=== PATIENT | male | born 1975 | race Caucasian/White ===

== ENCOUNTER 2016-12-16 09:18 | Inpatient (IN) | payer BC ==
[2016-12-16 09:36] VITALS: BMI 34.4
--- NOTE | 2016-12-16 10:00 | PDOC ---
History of Present Illness - General Chief Complaint: Chest Pain Stated Complaint: CHEST PAIN Time Seen by Provider: 12/16/16 09:49 History Source: Patient - History of Present Illness Initial Comments: 12/16/16 10:23 Patient is a 41 y.o. male with a PMH of NIDDM, NC (s/p stent) who presents with a 5 day h/o of pressure like chest pain that starts L subclavicular and radiates down his L arm that is associated with exertion and relieved by rest that started while he was on a cruise to the [facility] in which he was walking more than normal. Patient denies any associated diaphoresis, lightheadedness or shortness of breath but does endorse loose stools (not diarrhea, normal amount of BM) on ROS but notes all of his family members on the cruise have had similar symptoms. NKDA Surgical stent Social: denies cigarettes, denies alcohol, denies recreational drugs PMD: Dr. Goldstein Medical Collections Specialist: Dr. Blanca Past History - Past Medical History Allergies/Adverse Reactions: Allergies Allergy/AdvReac Type Severity Reaction Status Date / Time No Known Allergies Allergy Verified 12/16/16 09:31 Home Medications: Ambulatory Orders Aspirin [ASA -] 81 mg PO DAILY 03/01/13 Fenofibrate 160 mg PO DAILY 03/01/13 Lisinopril [Prinivil] 5 mg PO DAILY 03/01/13 Sitagliptin Phos/Metformin HCl [Janumet 50-1,000 mg Tablet] 2 each PO DAILY Atorvastatin Ca [Lipitor] 80 mg PO DAILY 01/16/15 Empagliflozin [Jardiance] 10 mg PO DAILY 01/16/15 Glimepiride [Amaryl] 4 mg PO DAILY 01/16/15 Metoprolol Succinate [Toprol XL -] 50 mg PO DAILY 01/16/15 [place]-3 Acid Ethyl Esters [Lovaza -] 2,000 mg PO BID 01/16/15 Cardiac Disorders: Yes (NC, STENT PLACEMENT) COPD: No Diabetes: Yes HTN: Yes Hypercholesterolemia: Yes - Surgical History Cardiac Surgery: Yes (STENT) - Immunization History Immunization Up to Date: Yes - Suicide/Smoking/Psychosocial Hx Smoking History: Never smoked Have you smoked in the past 12 months: No Information on smoking cessation initiated: No Hx Alcohol Use: No Drug/Substance Use Hx: No Substance Use Type: None Review of Systems - Review of Systems Constitutional: No: Diaphoresis Respiratory: No: Shortness of Breath, SOB with Exertion Cardiac (ROS): Yes: Chest Pain, Lightheadedness. No: Palpitations ABD/GI: Yes: Diarrhea. No: Constipated, Nausea, Vomiting : No: Burning, Dysuria All Other Systems: Reviewed and Negative *Physical Exam - Vital Signs Last Vital Signs Temp Pulse Resp BP Pulse Ox 98.7 F 96 H 16 150/84 97 12/16/16 09:31 12/16/16 09:31 12/16/16 09:31 12/16/16 09:31 12/16/16 09:31 - Physical Exam General Appearance: Yes: Nourished, Obese Neck: positive: Trachea midline, Supple Respiratory/Chest: positive: Lungs Clear Cardiovascular: positive: Regular Rate, S1, S2. negative: Diastolic Murmur, Systolic Murmur Gastrointestinal/Abdominal: positive: Normal Bowel Sounds, Soft Musculoskeletal: negative: CVA Tenderness, CVA Tenderness (R) Extremity: positive: Normal Capillary Refill, Normal Inspection Integumentary: positive: Normal Color, Dry, Warm Neurologic: positive: band saw filer II-XII NML intact, Fully Oriented, Alert ED Treatment Course - LABORATORY CBC & Chemistry Diagram: 12/16/16 10:35 12/16/16 10:32 Medical Decision Making - Medical Decision Making 12/16/16 11:25 Patient is a 41 y.o. male who presents PLAN: 1. CBC, CMP 2. CXR 3. Cardiac profile 12/16/16 11:25 EKG shows NSR with HR 93 bpm, no deviations, normal intervals with poor R wave progression V4-V6 and Q waves in Leads II and aVF suggesting prior inferior infarct consistent with patient history. Troponin (-) x1, BS 254, however patient notes he did not take his medications this morning and his BS is usually 220's, will hydrate and recheck BS; CXR shows not acute pathology. 12/16/16 12:[address] Bailey (admits for [place]) and consult to patient's gericare aide teacher, Dr. Blanca. Dr. Bailey accepted patient to obs telemetry. Will continue to monitor patient while in ED. *DC/Admit/Observation/Transfer Diagnosis at time of Disposition: Chest pain in adult
[2016-12-16 10:41] LABS: BASOPHIL 0.4 % (0-2.0); EOSINOPHIL 0.7 % (0-4.5); MCH 30.1 pg (25.7-33.7); MCHC 33.2 g/dl (32.0-35.9); MEAN CELL VOLUME 90.6 fl (80-96); MEAN PLT VOLUME 10.1 fl (7.5-11.1); NEUTROPHILS 56.3 % (42.8-82.8); PLATELET COUNT 251 K/MM3 (134-434); RDW 13.8 % (11.9-15.9); WHITE BLOOD COUNT 7.7 K/mm3 (4.0-10.0)
[2016-12-16 11:07] LABS: ALBUMIN 4.2 g/dl (3.4-5.0); ANION GAP 12 (8-16); BILIRUBIN,TOTAL 0.3 mg/dL (0.2-1.0); CALCIUM 8.9 mg/dL (8.5-10.1); CO2 22 mmol/L (21-32); CPK 72 IU/L (39-308); CREATININE 0.9 mg/dL (0.7-1.3); GLUCOSE,RANDOM 254 mg/dL (74-106); SGPT/ALT 77 U/L (12-78); TOT PROT 8.5 g/dl (6.4-8.2)
[2016-12-16 11:09] LABS: ALK PHOS 62 U/L (45-117); TROPONIN I < 0.02 ng/ml (0.00-0.05)
[2016-12-16 11:13] LABS: SGOT/AST 42 U/L (15-37)
[2016-12-16] MEDS ORDERED: GLIMEPIRIDE 4 MG TABLET (FP) PO ONE (11:22)
[2016-12-16] MEDS ORDERED: sitaGLIPtin PHOSPHATE 50 MG TABLET PO ONE (11:23)
[2016-12-16] MEDS ORDERED: SODIUM CHLORIDE 0.9% 1000 ML INFUS.BAG IV ONE (11:29)
--- NOTE | 2016-12-16 11:46 | PDOC ---
Attending Attestation - HPI HPI: 12/16/16 12:00 Pt is a 41 yo M with a PMHx of LA, CAD (s/p stents) who presents to the ED with L sided chest pain for the past 5 days. Patient reports pain is exacerbated with exertion and resolves at rest. Patient notes he was recently on cruise to the [employer] and returned 2 days ago. Patient experienced these symptoms on the cruise however has persisted until today. Patient also notes loose stools ( nonbloody, nonmucoid) with no abdominal pain, nausea. - Physicial Exam PE: 12/16/16 12:06 GENERAL: Awake, alert, and fully oriented, in no acute distress HEAD: No signs of trauma EYES: PERRLA, EOMI, sclera anicteric, conjunctiva clear ENT: Auricles normal inspection, hearing grossly normal, nares patent, oropharynx clear without exudates. Moist mucosa NECK: Normal ROM, supple, no lymphadenopathy, JVD, or masses LUNGS: Breath sounds equal, clear to auscultation bilaterally. No wheezes, and no crackles HEART: Regular rate and rhythm, normal S1 and S2, no murmurs, rubs or gallops ABDOMEN: Soft, nontender, normoactive bowel sounds. No guarding, no rebound. No masses EXTREMITIES: Normal range of motion, no edema. No clubbing or cyanosis. No cords, erythema, or tenderness. No calf pain, tenderness. NEUROLOGICAL: Cranial nerves II through XII grossly intact. Normal speech, normal gait SKIN: Warm, Dry, normal turgor, no rashes or lesions noted. - Medical Decision Making 12/16/16 12:08 Documentation prepared by Jovita Little, acting as medical health researcher for Susy Ortiz DO, MD/. <Jovita Little - Last Filed: 12/16/16 12:17> - Resident Resident Name: Damari Khoury - ED Attending Attestation I have performed the following: I have examined & evaluated the patient, The case was reviewed & discussed with the resident, I agree w/resident's findings & plan, Exceptions are as noted - Medical Decision Making 12/16/16 11:46 I, Dr. Susy Ortiz DO, attest that this document has been prepared under my direction and personally reviewed by me in its entirety. I further attest, that it accurately reflects all work, treatment, procedures and medical decision -making performed by me. 12/16/16 12:20 a/p: 41 yo male with CP on exertion x 5 days -concern given hx of LA in the past -will check labs, cardiac enzymes, discuss with Dr. Blanca (helmet binder) -will need obs -xray -reassess 12/16/16 12:[address] Villalpando who will see the patient in consult. Jean Claude Bailey - microblog sent to Dr. Bailey for obs placemement <Susy Ortiz - Last Filed: 12/16/16 12:22>
[2016-12-16] MEDS ORDERED: ASPIRIN 81 MG CHEWABLE TABLETS PO ONE (12:07)
[2016-12-16] MEDS ORDERED: ASPIRIN 81 MG CHEWABLE TABLETS ONE (12:27)
[2016-12-16] MEDS ORDERED: ACETAMINOPHEN 325 MG TABLET (FP) PO PRN (13:48)
[2016-12-16] MEDS ORDERED: morphine SULFATE 4 MG/ML VIAL IVPUSH PRN (13:48)
[2016-12-16] MEDS ORDERED: ONDANSETRON 4 MG/2 ML VIAL IVPUSH PRN (13:48)
[2016-12-16] MEDS ORDERED: NITROGLYCERIN SUBLINGUAL 1/150 0.4 MG TAB SL PRN (13:52)
--- NOTE | 2016-12-16 13:52 | HP ---
Admitting History and Physical - Primary Care Physician PCP: Kristina Silverio - Admission Chief Complaint: I'm having chest pain History of Present Illness: Mr Gill is a pleasant 41 year old male who comes in with chest pain/L shoulder pain for 5 days. He says he was on a cruise and developed chest pain. He says it was pressure like in nature. At first it was minimal but it progressed. He says that he mainly feels it on exertion, it is not present at rest. He describes the pain as pressure like in nature radiating to his left shoulder, this is accompanied by a tingling in his left arm. He has shortness of breath associated with it. He had fluttering once with this. He says this feels like the pain he had when he had his heart attack. He denies fevers, chills, lightheadedness, dizziness, passing out, nausea, vomiting, abdominal pain, diarrhea, constipation, difficulty or pain on urination, or leg swelling. Currently he is chest pain free when he is not walking or exerting himself. History Source: Patient Limitations to Obtaining History: No Limitations - Past Medical History Cardiovascular: Yes: CAD, Hyperlipdemia, Other (stents) Endocrine: Yes: Diabetes Mellitus - Past Surgical History Past Surgical History: Yes: Tonsillectomy - Smoking History Smoking history: Never smoked Have you smoked in the past 12 months: No - Alcohol/Substance Use Hx Alcohol Use: No History of Substance Use: reports: None - Social History ADL: Independent History of Recent Travel: No Home Medications - Allergies Allergies/Adverse Reactions: Allergies Allergy/AdvReac Type Severity Reaction Status Date / Time No Known Allergies Allergy Verified 12/16/16 09:31 - Home Medications Home Medications: Ambulatory Orders Aspirin [ASA -] 81 mg PO DAILY 03/01/13 Fenofibrate 160 mg PO DAILY 03/01/13 Lisinopril [Prinivil] 5 mg PO DAILY 03/01/13 Sitagliptin Phos/Metformin HCl [Janumet 50-1,000 mg Tablet] 2 each PO DAILY Atorvastatin Ca [Lipitor] 80 mg PO DAILY 01/16/15 Empagliflozin [Jardiance] 10 mg PO DAILY 01/16/15 Glimepiride [Amaryl] 4 mg PO DAILY 01/16/15 Metoprolol Succinate [Toprol XL -] 50 mg PO DAILY 01/16/15 [place]-3 Acid Ethyl Esters [Lovaza -] 2,000 mg PO BID 01/16/15 Family Disease History - Family Disease History Family Disease History: Diabetes: Father, Other: Sister (hypothyroid) Review of Systems Findings/Remarks: Full review of systems obtained, as per HPI and otherwise negative Physical Examination Vital Signs: Vital Signs Temperature 37.1 C 12/16/16 09:31 Pulse Rate 86 12/16/16 12:34 Respiratory Rate 22 12/16/16 12:34 Blood Pressure 123/84 12/16/16 12:34 O2 Sat by Pulse Oximetry (%) 97 12/16/16 12:34 Constitutional: Yes: No Distress, Calm, Obese Eyes: Yes: Conjunctiva Clear, EOM Intact, PERRL HENT: Yes: Atraumatic, Normocephalic Cardiovascular: Yes: Regular Rate and Rhythm. No: Gallop, Murmur, Rub Respiratory: Yes: Regular, CTA Bilaterally. No: Rales, Rhonchi, Wheezes Gastrointestinal: Yes: Normal Bowel Sounds, Soft. No: Distention, Tenderness Extremities: Yes: WNL Edema: No Labs: Laboratory Results - last 24 hr 12/16/16 12/16/16 10:32 10:35 WBC 7.7 RBC 5.02 Hgb 15.1 Hct 45.5 MCV 90.6 MCH 30.1 MCHC 33.2 RDW 13.8 Plt Count 251 MPV 10.1 Neutrophils % 56.3 Lymphocytes % 35.9 Monocytes % 6.7 Eosinophils % 0.7 Basophils % 0.4 Sodium 134 L Potassium 4.7 Chloride 100 Carbon Dioxide 22 Anion Gap 12 BUN 18 D Creatinine 0.9 Creat Clearance w eGFR > 60 Random Glucose 254 H Calcium 8.9 Total Bilirubin 0.3 AST 42 H ALT 77 D Alkaline Phosphatase 62 Creatine Kinase 72 Troponin I < 0.02 Total Protein 8.5 H Albumin 4.2 Imaging - Results Chest X-ray: Report Reviewed, Image Reviewed EKG: Image Reviewed Problem List - Problems (1) Unstable angina Assessment/Plan: -symptoms consistent with unstable angina -however says last year had same pain and was secondary to anxiety -states last stress test and cardiac cath was last year -admit to telemetry under observation -cardiac enzymes x3 -cardiology consult -continue home regimen, medical management for CAD -add prn nitro Code(s): I20.0 - UNSTABLE ANGINA (2) Diabetes Assessment/Plan: -diabetic diet -continue home regimen -FSBS and SSI Code(s): E11.9 - TYPE 2 DIABETES MELLITUS WITHOUT COMPLICATIONS (3) Hypercholesteremia Assessment/Plan: -continue statin Code(s): E78.0 - PURE HYPERCHOLESTEROLEMIA * DO NOT USE * (4) CAD (coronary artery disease) Assessment/Plan: -continue home regimen -cardiology consult Code(s): I25.10 - ATHSCL HEART DISEASE OF [place] CORONARY ARTERY W/O ANG PCTRS
--- NOTE | 2016-12-16 15:02 | CON.CARD ---
Cardiology Consult (text) - Consultation Consultation Note: CC: CP 41 yrs old with known CAD (nstemi s/p distal RCA DAYRON PCI 01/2011), HTN, hyper TG (last TG > 1400), obesity, DM, anxiety depression p/w chest pain Now with progressive exertional cp. Prior anginal symptoms cold/hot, burning sensation in upper chest when walking. Quality of this pain is different and feels more like chest discomfort that he gets when he is stressed, but that is typicallly not exertional. TG's in May were very elevated, 1485. PMH/Pshx: per phi social hx: no cigs fam hx: no FH of early CAD ros: per hpi Ambulatory Orders Aspirin [ASA -] 81 mg PO DAILY 03/01/13 Fenofibrate 160 mg PO DAILY 03/01/13 Lisinopril [Prinivil] 5 mg PO DAILY 03/01/13 Sitagliptin Phos/Metformin HCl [Janumet 50-1,000 mg Tablet] 2 each PO DAILY Atorvastatin Ca [Lipitor] 80 mg PO DAILY 01/16/15 Empagliflozin [Jardiance] 10 mg PO DAILY 01/16/15 Glimepiride [Amaryl] 4 mg PO DAILY 01/16/15 Metoprolol Succinate [Toprol XL -] 50 mg PO DAILY 01/16/15 [place]-3 Acid Ethyl Esters [Lovaza -] 2,000 mg PO BID 01/16/15 Current Medications Acetaminophen (Tylenol -) 650 mg PO Q4H PRN PRN Reason: FEVER OR PAIN Aspirin (Asa -) 81 mg PO DAILY [facility] Atorvastatin Calcium (Lipitor -) 80 mg PO DAILY [facility] Fenofibric Acid (Trilipix -) 135 mg PO DAILY [facility] Glimepiride (Amaryl -) 4 mg PO AM [facility] Insulin Aspart (Novolog Vial Sliding Scale -) 1 vial SQ ACHS [facility] PRN Reason: Protocol Lisinopril (Prinivil) 5 mg PO DAILY [facility] Metoprolol Succinate (Toprol Xl -) 50 mg PO DAILY [facility] Morphine Sulfate (Morphine Injection -) 1 mg IVPUSH Q4H PRN PRN Reason: PAIN Nitroglycerin (Nitrostat -) 0.4 mg SL Q5M PRN PRN Reason: FOR CHEST PAIN Non-Formulary Medication (Sitagliptin Phos/Metformin Hcl [Janumet 50-1,000 Mg Tablet]) 2 each PO DAILY [facility] [id number] Ethyl Esters (Lovaza -) 2 gm PO BID [facility] Ondansetron HCl (Zofran Injection) 4 mg IVPUSH Q6H PRN PRN Reason: NAUSEA Vital Signs - 24 hr 12/16/16 12/16/16 12/16/16 09:31 10:20 11:38 Temperature 98.7 F Pulse Rate 96 H Pulse Rate [ 92 H Apical] Respiratory 16 20 Rate Blood Pressure 150/84 Blood Pressure 128/89 [Left Arm] O2 Sat by Pulse 97 98 97 Oximetry (%) 12/16/16 12/16/16 12:34 14:46 Temperature 98.8 F Pulse Rate Pulse Rate [ 86 92 H Apical] Respiratory 22 20 Rate Blood Pressure Blood Pressure 123/84 125/70 [Left Arm] O2 Sat by Pulse 97 95 Oximetry (%) Intake & Output 12/14/16 12/15/16 12/16/16 12/17/16 08:59 07:59 07:59 07:59 Weight 220 lb NAD, calm JVD flat, neck supple ctab, nl effort rrr nl s1, s2 no m/r/g + bs soft nt nd ext without e/c/c + dp/pt aaox3 no carotid bruits no jaundice, diaphoresis CBC, BMP 12/16/16 10:35 12/16/16 10:32 Laboratory Tests 12/16/16 10:32 Total Bilirubin 0.3 AST 42 H ALT 77 D Alkaline Phosphatase 62 Troponin I < 0.02 Albumin 4.2 EKG: sr, inferior q waves, poor r wave progression. no acute ischemic changes. tele: SR cxr: wnl 41 yrs old with known CAD (nstemi s/p distal RCA DAYRON PCI 01/2011), HTN, hyper TG (last TG > 1400), obesity, DM, anxiety depression p/w chest pain CAD (nstemi s/p distal RCA DAYRON PCI 01/2011) - con't luis miguel, ekg as above. - known cad, with typical anginal exertional pain (although different from prior anginal pain). --> plan for stress test, echo - con't bb, statin, asa. HTN - bb as above hyperTG - lipase and triglyceride level. Last level was 1400 and at risk for pancreatitis. con't high dose statin, fibrate. anxiety/depression - per pmd
[2016-12-16] MEDS: INSULIN SLIDING SCALE (NOVOLOG) 1 VIAL SQ SCH ×2 (17:26→22:37)
[2016-12-16 19:08] LABS: CPK 57 IU/L (39-308); TROPONIN I < 0.02 ng/ml (0.00-0.05)
[2016-12-16] MEDS: OMEGA-3 ACID ETHYL ESTERS (FATTY-ACIDS) 1 GM CAPSULE (FP) PO SCH (22:40)
[2016-12-16 22:57] LABS: CHOLESTEROL 210 mg/dL (50-200)
[2016-12-17 06:31] LABS: BASOPHIL 0.3 % (0-2.0); EOSINOPHIL 1.4 % (0-4.5); MCH 30.5 pg (25.7-33.7); MEAN CELL VOLUME 89.5 fl (80-96); MEAN PLT VOLUME 9.9 fl (7.5-11.1); NEUTROPHILS 52.7 % (42.8-82.8); PLATELET COUNT 225 K/MM3 (134-434); RDW 13.4 % (11.9-15.9); WHITE BLOOD COUNT 7.5 K/mm3 (4.0-10.0)
[2016-12-17 06:59] LABS: ANION GAP 8 (8-16); CALCIUM 8.6 mg/dL (8.5-10.1); CO2 25 mmol/L (21-32); CREATININE 0.8 mg/dL (0.7-1.3); GLUCOSE,RANDOM 199 mg/dL (74-106); MAGNESIUM 2.1 mg/dL (1.8-2.4); PHOSPHOROUS 3.4 mg/dL (2.5-4.9)
[2016-12-17 07:04] LABS: CPK 52 IU/L (39-308); TROPONIN I < 0.02 ng/ml (0.00-0.05)
--- NOTE | 2016-12-17 07:31 | EKG ---
Test Reason : Blood Pressure : / mmHG Vent. Rate : 093 BPM Atrial Rate : 093 BPM P-R Int : 142 ms QRS Dur : 092 ms QT Int : 358 ms P-R-T Axes : 040 003 008 degrees QTc Int : 445 ms NORMAL SINUS RHYTHM INFERIOR INFARCT (CITED ON OR BEFORE 31-JAN-2011) CANNOT RULE OUT ANTERIOR INFARCT , AGE UNDETERMINED ABNORMAL ECG WHEN COMPARED WITH ECG OF 01-MAR-2013 12:07, NO SIGNIFICANT CHANGE WAS FOUND Confirmed by TJ SALAS MD ([id number]) on 12/17/2016 7:31:25 AM Referred By: Confirmed By:TJ SALAS MD
[2016-12-17] MEDS ORDERED: INSULIN (NOVOLOG) ASPART 100 UNITS/ML 10ML VIAL ONE (08:36)
[2016-12-17] MEDS: INSULIN SLIDING SCALE (NOVOLOG) 1 VIAL SQ SCH ×3 (08:53→22:27)
[2016-12-17] MEDS: GLIMEPIRIDE 4 MG TABLET (FP) PO SCH (09:00)
[2016-12-17] MEDS: sitaGLIPtin PHOSPHATE 100 MG TABLET (FP) PO SCH (09:01)
[2016-12-17] MEDS ORDERED: PATIENT'S OWN MEDICATION (NON-FORMULARY) (Sitagliptin Phos/Metformin Hcl [Janumet 50-1,000 PO SCH (10:00)
[2016-12-17] MEDS ORDERED: METOPROLOL SUCCINATE 50 MG TAB.SR.24H (FP) PO SCH (10:00)
[2016-12-17] MEDS: ATORVASTATIN CA 80 MG TABLET (FP) PO SCH (10:07)
[2016-12-17] MEDS: LISINOPRIL 5 MG TABLET (FP) PO SCH (10:07)
[2016-12-17] MEDS: ASPIRIN 81 MG CHEWABLE TABLETS PO SCH (10:07)
[2016-12-17] MEDS: FENOFIBRIC ACID 135 MG CAP PO SCH (10:08)
[2016-12-17] MEDS: OMEGA-3 ACID ETHYL ESTERS (FATTY-ACIDS) 1 GM CAPSULE (FP) PO SCH ×2 (10:47→22:54)
--- NOTE | 2016-12-17 13:24 | PN ---
Progress Note (short form) - Note Progress Note: CC: cp S: cp improved overnight. no sob, palps, dizziness. Current Medications Acetaminophen (Tylenol -) 650 mg PO Q4H PRN PRN Reason: FEVER OR PAIN Aspirin (Asa -) 81 mg PO DAILY [facility] Last Admin: 12/17/16 10:07 Dose: 81 mg Atorvastatin Calcium (Lipitor -) 80 mg PO DAILY [facility] Last Admin: 12/17/16 10:07 Dose: 80 mg Fenofibric Acid (Trilipix -) 135 mg PO DAILY [facility] Last Admin: 12/17/16 10:08 Dose: 135 mg Glimepiride (Amaryl -) 4 mg PO AM [facility] Last Admin: 12/17/16 09:00 Dose: 4 mg Insulin Aspart (Novolog Vial Sliding Scale -) 1 vial SQ ACHS [facility] PRN Reason: Protocol Last Admin: 12/17/16 08:53 Dose: Not Given Lisinopril (Prinivil) 5 mg PO DAILY [facility] Last Admin: 12/17/16 10:07 Dose: 5 mg Metformin HCl (Glucophage Xr -) 2,000 mg PO AM [facility] Last Admin: 12/17/16 09:01 Dose: 2,000 mg Metoprolol Succinate (Toprol Xl -) 50 mg PO DAILY [facility] Last Admin: 12/17/16 10:08 Dose: 50 mg Morphine Sulfate (Morphine Sulfate) 1 mg IVPUSH Q4H PRN PRN Reason: PAIN Nitroglycerin (Nitrostat -) 0.4 mg SL Q5M PRN PRN Reason: FOR CHEST PAIN [id number] Ethyl Esters (Lovaza -) 2 gm PO BID [facility] Last Admin: 12/17/16 10:47 Dose: Not Given Ondansetron HCl (Zofran Injection) 4 mg IVPUSH Q6H PRN PRN Reason: NAUSEA Sitagliptin Phosphate (Januvia -) 100 mg PO DAILY@0700 [facility] Last Admin: 12/17/16 09:01 Dose: 100 mg Vital Signs - 24 hr 12/16/16 12/16/16 12/16/16 14:46 17:30 20:34 Temperature 98.8 F 98.3 F Pulse Rate [ 92 H 89 Apical] Respiratory 20 20 Rate Blood Pressure 125/70 136/78 [Left Arm] O2 Sat by Pulse 95 96 96 Oximetry (%) 12/17/16 06:30 Temperature 97.5 F L Pulse Rate [ 80 Apical] Respiratory 18 Rate Blood Pressure 138/82 [Left Arm] O2 Sat by Pulse 98 Oximetry (%) Intake & Output 12/15/16 12/16/16 12/17/16 12/18/16 07:59 07:59 07:59 07:59 Weight 220 lb NAD, calm JVD flat, neck supple ctab, nl effort rrr nl s1, s2 no m/r/g + bs soft nt nd ext without e/c/c + dp/pt aaox3 no carotid bruits no jaundice, diaphoresis CBC, BMP 12/17/16 06:02 12/17/16 06:02 Laboratory Tests 12/16/16 12/16/16 12/17/16 10:32 17:40 06:02 Troponin I < 0.02 < 0.02 < 0.02 EKG: sr, inferior q waves, poor r wave progression. no acute ischemic changes. tele: SR cxr: wnl 41 yrs old with known CAD (nstemi s/p distal RCA DAYRON PCI 01/2011), HTN, hyper TG (last TG > 1400), obesity, DM, anxiety depression p/w chest pain CAD (nstemi s/p distal RCA DAYRON PCI 01/2011) - ce's neg x 3, ekg as above. - known cad, with typical anginal exertional pain (although different from prior anginal pain). --> stress test pending, echo report pending - will uptitrate metoprolol to bid dosing for improved hr control. HTN - cont current meds. bb adjustment as above. hyperTG - improved from priors. con't high dose statin, fibrate. anxiety/depression - per pmd
--- NOTE | 2016-12-17 16:51 | PN ---
Progress Note, Physician Chief Complaint: Mr Gill says he is doing well. Denies cp, sob, n/v - Current Medication List Current Medications: Active Medications Acetaminophen (Tylenol -) 650 mg PO Q4H PRN PRN Reason: FEVER OR PAIN Aspirin (Asa -) 81 mg PO DAILY [facility] Last Admin: 12/17/16 10:07 Dose: 81 mg Atorvastatin Calcium (Lipitor -) 80 mg PO DAILY [facility] Last Admin: 12/17/16 10:07 Dose: 80 mg Fenofibric Acid (Trilipix -) 135 mg PO DAILY [facility] Last Admin: 12/17/16 10:08 Dose: 135 mg Glimepiride (Amaryl -) 4 mg PO AM [facility] Last Admin: 12/17/16 09:00 Dose: 4 mg Insulin Aspart (Novolog Vial Sliding Scale -) 1 vial SQ ACHS [facility] PRN Reason: Protocol Last Admin: 12/17/16 08:53 Dose: Not Given Lisinopril (Prinivil) 5 mg PO DAILY [facility] Last Admin: 12/17/16 10:07 Dose: 5 mg Metformin HCl (Glucophage Xr -) 2,000 mg PO AM [facility] Last Admin: 12/17/16 09:01 Dose: 2,000 mg Metoprolol Succinate (Toprol Xl -) 50 mg PO DAILY [facility] Last Admin: 12/17/16 10:08 Dose: 50 mg Morphine Sulfate (Morphine Sulfate) 1 mg IVPUSH Q4H PRN PRN Reason: PAIN Nitroglycerin (Nitrostat -) 0.4 mg SL Q5M PRN PRN Reason: FOR CHEST PAIN [id number] Ethyl Esters (Lovaza -) 2 gm PO BID [facility] Last Admin: 12/17/16 10:47 Dose: Not Given Ondansetron HCl (Zofran Injection) 4 mg IVPUSH Q6H PRN PRN Reason: NAUSEA Sitagliptin Phosphate (Januvia -) 100 mg PO DAILY@0700 [facility] Last Admin: 12/17/16 09:01 Dose: 100 mg - Objective Vital Signs: Vital Signs Temperature 36.9 C 12/17/16 16:36 Pulse Rate 84 12/17/16 16:36 Respiratory Rate 18 12/17/16 16:36 Blood Pressure 117/78 12/17/16 16:36 O2 Sat by Pulse Oximetry (%) 98 12/17/16 16:36 Constitutional: Yes: No Distress, Calm, Obese Cardiovascular: Yes: Regular Rate and Rhythm. No: Gallop, Murmur, Rub Respiratory: Yes: Regular, CTA Bilaterally. No: Rales, Rhonchi, Wheezes Gastrointestinal: Yes: Normal Bowel Sounds, Soft. No: Distention, Tenderness Extremities: Yes: WNL Edema: No Labs: CBC, BMP 12/17/16 06:02 12/17/16 06:02 Problem List - Problems (1) Unstable angina Code(s): I20.0 - UNSTABLE ANGINA (2) Diabetes Code(s): E11.9 - TYPE 2 DIABETES MELLITUS WITHOUT COMPLICATIONS (3) Hypercholesteremia Code(s): E78.0 - PURE HYPERCHOLESTEROLEMIA * DO NOT USE * (4) CAD (coronary artery disease) Code(s): I25.10 - ATHSCL HEART DISEASE OF [place] CORONARY ARTERY W/O ANG PCTRS Assessment/Plan (1) Unstable angina Assessment/Plan: -case d/w cardiology -awaiting stress test results -continue current management Code(s): I20.0 - UNSTABLE ANGINA (2) Diabetes Assessment/Plan: -diabetic diet -continue home regimen -FSBS and SSI -may need outpatient adjustment with HgbA1c of 8.8 Code(s): E11.9 - TYPE 2 DIABETES MELLITUS WITHOUT COMPLICATIONS (3) Hypercholesteremia Assessment/Plan: -significantly elevated triglycerides, but improved from outpatient -continue current regimen -may need further outpatient adjustment Code(s): E78.0 - PURE HYPERCHOLESTEROLEMIA * DO NOT USE * (4) CAD (coronary artery disease) Assessment/Plan: -continue home regimen -cardiology following Code(s): I25.10 - ATHSCL HEART DISEASE OF [place] CORONARY ARTERY W/O ANG PCTRS
[2016-12-17] MEDS ORDERED: PT OWN MED DRAWER 7, Y5N ONE (22:18)
[2016-12-17] MEDS: METOPROLOL SUCCINATE 50 MG TAB.SR.24H (FP) PO SCH (22:54)
[2016-12-18] MEDS: OMEGA-3 ACID ETHYL ESTERS (FATTY-ACIDS) 1 GM CAPSULE (FP) PO SCH ×2 (10:30→21:34)
[2016-12-18] MEDS: FENOFIBRIC ACID 135 MG CAP PO SCH (10:31)
[2016-12-18] MEDS: ATORVASTATIN CA 80 MG TABLET (FP) PO SCH (10:31)
[2016-12-18] MEDS: ASPIRIN 81 MG CHEWABLE TABLETS PO SCH (10:31)
[2016-12-18] MEDS: LISINOPRIL 5 MG TABLET (FP) PO SCH (10:31)
[2016-12-18] MEDS: METOPROLOL SUCCINATE 50 MG TAB.SR.24H (FP) PO SCH ×2 (10:31→21:34)
--- NOTE | 2016-12-18 11:05 | PN ---
Progress Note (short form) - Note Progress Note: CC: cp S: cp improved overnight. no sob, palps, dizziness. Current Medications Generic Name Dose Route Start Last Admin Trade Name Freq PRN Reason Stop Dose Admin Acetaminophen 650 mg 12/16/16 13:48 Tylenol - PO Q4H PRN FEVER OR PAIN Aspirin 81 mg 12/17/16 10:00 12/18/16 10:31 Asa - PO 81 mg DAILY LIDIA Administration Atorvastatin Calcium 80 mg 12/17/16 10:00 12/18/16 10:31 Lipitor - PO 80 mg DAILY LIDIA Administration Fenofibric Acid 135 mg 12/17/16 10:00 12/18/16 10:31 Trilipix - PO 135 mg DAILY LIDIA Administration Glimepiride 4 mg 12/17/16 07:00 12/17/16 09:00 Amaryl - PO 4 mg AM ILDIA Administration Insulin Aspart 1 vial 12/16/16 16:30 12/17/16 22:27 Novolog Vial Sliding Scale - SQ Not Given ACHS [facility] Protocol Lisinopril 5 mg 12/17/16 10:00 12/18/16 10:31 Prinivil PO 5 mg DAILY LIDIA Administration Metformin HCl 2,000 mg 12/17/16 07:00 12/17/16 09:01 Glucophage Xr - PO 2,000 mg AM LIDIA Administration Metoprolol Succinate 50 mg 12/17/16 22:00 12/18/16 10:31 Toprol Xl - PO 50 mg BID LIDIA Administration Morphine Sulfate 1 mg 12/16/16 13:48 Morphine Sulfate IVPUSH Q4H PRN PAIN Nitroglycerin 0.4 mg 12/16/16 13:52 Nitrostat - SL Q5M PRN FOR CHEST PAIN [id number] Ethyl Esters 2 gm 12/16/16 22:00 12/18/16 10:30 Lovaza - PO 2 gm BID LIDIA Administration Ondansetron HCl 4 mg 12/16/16 13:48 Zofran Injection IVPUSH Q6H PRN NAUSEA Sitagliptin Phosphate 100 mg 12/17/16 07:00 12/17/16 09:01 Januvia - PO 100 mg DAILY@0700 LIDIA Administration Vital Signs Period Temp Pulse Resp BP Sys/Alvarez Pulse Ox Last 24 Hr 97.3 F-98.5 F 74-93 18-19 109-131/69-82 98-98 NAD, calm JVD flat, neck supple ctab, nl effort rrr nl s1, s2 no m/r/g + bs soft nt nd ext without e/c/c aaox3 no jaundice, diaphoresis CBC, BMP 12/17/16 06:02 12/17/16 06:02 EKG: sr, inferior q waves, poor r wave progression. no acute ischemic changes. tele: SR cxr: wnl mibi 12/2016: large inferolat severe ischemia, small apical ischemia a/p: 41 yrs old with known CAD (nstemi s/p distal RCA DAYRON PCI 01/2011), HTN, hyper TG (last TG > 1400), obesity, DM, anxiety depression p/w chest pain CAD (nstemi s/p distal RCA DAYRON PCI 01/2011) - ce's neg x 3, ekg as above. - known cad, with typical anginal exertional pain (although different from prior anginal pain). -->mibi shows severe ischemia so will plan for cath at [facility], likely tomorrow. echo report pending. - cont bb, statin, asa HTN - cont current meds. hyperTG - improved from priors. con't high dose statin, fibrate.
--- NOTE | 2016-12-18 11:38 | PN ---
Progress Note, Physician Chief Complaint: Mr Gill says he is doing well. Denies cp, sob, n/v - Current Medication List Current Medications: Active Medications Acetaminophen (Tylenol -) 650 mg PO Q4H PRN PRN Reason: FEVER OR PAIN Aspirin (Asa -) 81 mg PO DAILY [facility] Last Admin: 12/18/16 10:31 Dose: 81 mg Atorvastatin Calcium (Lipitor -) 80 mg PO DAILY [facility] Last Admin: 12/18/16 10:31 Dose: 80 mg Fenofibric Acid (Trilipix -) 135 mg PO DAILY [facility] Last Admin: 12/18/16 10:31 Dose: 135 mg Glimepiride (Amaryl -) 4 mg PO AM [facility] Last Admin: 12/17/16 09:00 Dose: 4 mg Insulin Aspart (Novolog Vial Sliding Scale -) 1 vial SQ ACHS [facility] PRN Reason: Protocol Last Admin: 12/17/16 22:27 Dose: Not Given Lisinopril (Prinivil) 5 mg PO DAILY [facility] Last Admin: 12/18/16 10:31 Dose: 5 mg Metformin HCl (Glucophage Xr -) 2,000 mg PO AM [facility] Last Admin: 12/17/16 09:01 Dose: 2,000 mg Metoprolol Succinate (Toprol Xl -) 50 mg PO BID [facility] Last Admin: 12/18/16 10:31 Dose: 50 mg Morphine Sulfate (Morphine Sulfate) 1 mg IVPUSH Q4H PRN PRN Reason: PAIN Nitroglycerin (Nitrostat -) 0.4 mg SL Q5M PRN PRN Reason: FOR CHEST PAIN [id number] Ethyl Esters (Lovaza -) 2 gm PO BID [facility] Last Admin: 12/18/16 10:30 Dose: 2 gm Ondansetron HCl (Zofran Injection) 4 mg IVPUSH Q6H PRN PRN Reason: NAUSEA Sitagliptin Phosphate (Januvia -) 100 mg PO DAILY@0700 [facility] Last Admin: 12/17/16 09:01 Dose: 100 mg - Objective Vital Signs: Vital Signs Temperature 36.9 C 12/18/16 10:33 Pulse Rate 83 12/18/16 10:33 Respiratory Rate 19 12/18/16 10:33 Blood Pressure 120/69 12/18/16 10:33 O2 Sat by Pulse Oximetry (%) 98 12/17/16 22:00 Constitutional: Yes: Well Nourished, No Distress, Calm Cardiovascular: Yes: Regular Rate and Rhythm. No: Gallop, Murmur, Rub Respiratory: Yes: Regular, CTA Bilaterally. No: Rales, Rhonchi, Wheezes Gastrointestinal: Yes: Normal Bowel Sounds, Soft. No: Distention, Tenderness Extremities: Yes: WNL Edema: No Labs: CBC, BMP 12/17/16 06:02 12/17/16 06:02 Problem List - Problems (1) Diabetes Code(s): E11.9 - TYPE 2 DIABETES MELLITUS WITHOUT COMPLICATIONS (2) Hypercholesteremia Code(s): E78.0 - PURE HYPERCHOLESTEROLEMIA * DO NOT USE * (3) Unstable angina Code(s): I20.0 - UNSTABLE ANGINA (4) CAD (coronary artery disease) Code(s): I25.10 - ATHSCL HEART DISEASE OF [place] CORONARY ARTERY W/O ANG PCTRS Assessment/Plan (1) ACS Assessment/Plan: -patient presents with unstable angina and positive stress test -will need cardiac catheterization -planning for transfer to [facility] tomorrow -cardiology managing transfer Code(s): I20.0 - UNSTABLE ANGINA (2) Diabetes Assessment/Plan: -case d/w patient -states Hgb was in the 9 -however still 8.8 -with stress test, will need tighter control -will need outpatient adjustment Code(s): E11.9 - TYPE 2 DIABETES MELLITUS WITHOUT COMPLICATIONS (3) Hypercholesteremia Assessment/Plan: -significantly elevated triglycerides, but improved from outpatient -continue current regimen -may need further outpatient adjustment Code(s): E78.0 - PURE HYPERCHOLESTEROLEMIA * DO NOT USE * (4) CAD (coronary artery disease) Assessment/Plan: -continue home regimen -cardiology following Code(s): I25.10 - ATHSCL HEART DISEASE OF [place] CORONARY ARTERY W/O ANG PCTRS
[2016-12-18] MEDS: INSULIN SLIDING SCALE (NOVOLOG) 1 VIAL SQ SCH ×3 (12:08→21:33)
[2016-12-18] MEDS ORDERED: PT OWN MED DRAWER 7, Y5N ONE (21:11)
[2016-12-19] MEDS: INSULIN SLIDING SCALE (NOVOLOG) 1 VIAL SQ SCH (06:23)
[2016-12-19] MEDS: GLIMEPIRIDE 4 MG TABLET (FP) PO SCH (06:25)
[2016-12-19] MEDS: sitaGLIPtin PHOSPHATE 100 MG TABLET (FP) PO SCH (06:25)
[2016-12-19] MEDS: ASPIRIN 81 MG CHEWABLE TABLETS PO SCH (10:34)
[2016-12-19] MEDS: ATORVASTATIN CA 80 MG TABLET (FP) PO SCH (10:34)
[2016-12-19] MEDS: FENOFIBRIC ACID 135 MG CAP PO SCH (10:34)
[2016-12-19] MEDS: METOPROLOL SUCCINATE 50 MG TAB.SR.24H (FP) PO SCH (10:34)
[2016-12-19] MEDS: LISINOPRIL 5 MG TABLET (FP) PO SCH (10:34)
[2016-12-19] MEDS: OMEGA-3 ACID ETHYL ESTERS (FATTY-ACIDS) 1 GM CAPSULE (FP) PO SCH (10:34)
[2016-12-19 10:37] VITALS: BP 128/78; PULSE 82; TEMP 98
--- NOTE | 2016-12-19 11:39 | PN ---
Progress Note (short form) - Note Progress Note: CC: cp S: cp improved no sob, palps, dizziness. Home Medications Medication Instructions Recorded Aspirin [ASA -] 81 mg PO DAILY 03/01/13 Fenofibrate 160 mg PO DAILY 03/01/13 Lisinopril [Prinivil] 5 mg PO DAILY 03/01/13 Sitagliptin Phos/Metformin HCl 2 each PO DAILY 03/01/13 [Janumet 50-1,000 mg Tablet] Atorvastatin Ca [Lipitor] 80 mg PO DAILY 01/16/15 Empagliflozin [Jardiance] 10 mg PO DAILY 01/16/15 Glimepiride [Amaryl] 4 mg PO DAILY 01/16/15 Metoprolol Succinate [Toprol XL -] 50 mg PO DAILY 01/16/15 [place]-3 Acid Ethyl Esters [Lovaza 2,000 mg PO BID 01/16/15 -] Vital Signs Period Temp Pulse Resp BP Sys/Alvarez Pulse Ox Last 24 Hr 97.7 F-99.1 F 76-87 14-18 116-129/67-80 97-98 NAD, calm JVD flat, neck supple ctab, nl effort rrr nl s1, s2 no m/r/g + bs soft nt nd ext without e/c/c aaox3 no jaundice, diaphoresis CBC, BMP 12/17/16 06:02 12/17/16 06:02 EKG: sr, inferior q waves, poor r wave progression. no acute ischemic changes. tele: SR cxr: wnl echo 12/2016: nl lv/rv, mild tr mibi 12/2016: large inferolat severe ischemia, small apical ischemia a/p: 41 yrs old with known CAD (nstemi s/p distal RCA DAYRON PCI 01/2011), HTN, hyper TG (last TG > 1400), obesity, DM, anxiety depression p/w chest pain CAD (nstemi s/p distal RCA DAYRON PCI 01/2011) - ce's neg x 3, ekg as above. - known cad, with typical anginal exertional pain (although different from prior anginal pain). -->mibi shows severe ischemia so will plan for cath at [facility] today. echo unremarkable here. - cont bb, statin, asa HTN - cont current meds. hyperTG - improved from priors. con't high dose statin, fibrate.
== END 2016-12-19 11:25 | disposition short-term general hospital (02) | DRG 303 ==
LOC: JER 09:18 → JERBED 11:36 → J4S 12-17 17:20 → OBSVTOIN 12-18 16:00
PROVIDERS: ADMIT Internal Medicine; ATTEND Internal Medicine
DX: I25.110 Atherosclerotic heart disease of native coronary artery with unstable angina pectoris (principal); E11.9 Type 2 diabetes mellitus without complications; I25.2 Old myocardial infarction; Z95.5 Presence of coronary angioplasty implant and graft; E66.8 Other obesity; Z68.34 Body mass index [BMI] 34.0-34.9, adult; F41.8 Other specified anxiety disorders; E78.1 Pure hyperglyceridemia
CPT/HCPCS: 36415; 71020-TC; 78452-TC; 80048; 80053; 80061; 82550; 83036; 83690; 83721; 83735; 84100; 84484; 85025; 93005; 93010; 93017; 93306-TC; 99285-25; A9502; G0378